=== PATIENT | male | born 1995 | race Two or more races ===

== ENCOUNTER 2017-09-02 09:20 | Emergency (ER) | payer SELFPAY ==
[2017-09-02 09:23] VITALS: BP 129/67; PULSE 57; TEMP 97
[2017-09-02 09:24] VITALS: BMI 27.4
--- NOTE | 2017-09-02 10:13 | PDOC ---
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 Patient report he feels pain and weakness whenever he has to do any heavy lifting . report no seeing anybody when injury occurred Timing/Duration: other (2 weeks) Modifying Factors: improves with: rest. worse with: movement Associated Symptoms: reports: weakness (left hand). denies: chest pain, cough, diaphoresis, fever/chills, headaches, loss of appetite, malaise, nausea/vomiting , rash, seizure, shortness of breath, syncope, other Aspirin Received prior to arrival: Yes: no aspirin today Asa Contraindications(Core Measure): Yes: Allergy Beta Jitendra Contraindications(Core Measure): Yes: Not Prescribed Past History - Past Medical History Allergies/Adverse Reactions: Allergies Allergy/AdvReac Type Severity Reaction Status Date / Time No Known Allergies Allergy Verified 09/02/17 09:23 Home Medications: Ambulatory Orders Ibuprofen 800 mg PO TID PRN #20 tablet 09/02/17 COPD: No - Suicide/Smoking/Psychosocial Hx Smoking History: Never smoked Review of Systems - Review of Systems Constitutional: Yes: Weakness (left hand). No: Chills, Diaphoresis, Fever, Loss of Appetite, Malaise, Night Sweats, Weight Stable, Unintentional Wgt. Loss , Unexplained wgt Loss, Other HEENTM: No: Eye Pain, Blurred Vision, Tearing, Recent change in vision, Double Vision, Cataracts, Ear Pain, Ocular Prothesis, Ear Discharge, Nose Pain, Nose Congestion, Tinnitus, Nose Bleeding, Hearing Loss, Throat Pain, Throat Swelling , Mouth Pain, Dental Problems, Difficulty Swallowing, Mouth Swelling, Other Respiratory: No: Cough, Orthopnea, Shortness of Breath, SOB with Exertion, SOB at Rest, Stridor, Wheezing, Productive cough, Hemoptysis, Other Cardiac (ROS): No: Chest Pain, Edema, Irregular Heart Rate, Lightheadedness, Palpitations, Syncope, Chest Tightness, Other ABD/GI: No: Abdominal Distended, Abd. Pain w/ defecation, Blood Streaked Bowels , Constipated, Diarrhea, Difficulty Swallowing, Nausea, Poor Appetite, Poor Fluid Intake, Rectal Bleeding, Vomiting, Indigestion, Abdominal cramping, Tarry Stools, Other : No: Burning, Dysuria, Discharge, Frequency, Flank Pain, Hematuria, Incontinence, Pain, Urgency, Testicular Mass, Testicular Swelling, Lesions, Testicular Pain, Other Musculoskeletal: Yes: Joint Pain (left little finger ), Muscle Pain (left hand) , Muscle Weakness (left hand). No: Back Pain, Gout, Joint Swelling, Neck Pain, Joint Stiffness, Other Integumentary: No: Bruising, Change in Color, Change in Hair/Nails, Dryness, Erythema, Flushing, Lesions, Lumps, Pallor, Pruritus, Rash, Sweating, Other Neurological: No: Headache, Numbness, Paresthesia, Pre-Existing Deficit, Seizure , Tingling, Tremors, Weakness, Unsteady Gait, Ataxia, Dizziness, Other Psychiatric: No: Frequent Crying, Stressors, Sleep Pattern Change, Emotional Problems, Mood Swings, Change in Appetite, Other Endocrine: No: Excessive Sweating, Flushing, Intolerance to Cold, Intolerance to Heat, Increased Hunger, Increased Thirst, Increased Urine, Unexplained Weight Gain, Unexplained Weight Loss, Change in Weight, Other Hematologic/Lymphatic: No: Anemia, Blood Clots, Easy Bleeding, Easy Bruising, Bleeding Diathesis, Lymph Node Abnormalities, Swollen Glands, Other All Other Systems: Reviewed and Negative *Physical Exam - Vital Signs Last Vital Signs Temp Pulse Resp BP Pulse Ox 97 F L 57 L 18 129/67 99 09/02/17 09:21 09/02/17 09:21 09/02/17 09:21 09/02/17 09:21 09/02/17 09:21 - Physical Exam General Appearance: Yes: Nourished, Appropriately Dressed. No: Apparent Distress HEENT: positive: EOMI, LIVE, Normal ENT Inspection, Normal Voice, Pharynx Normal Neck: positive: Trachea midline, Normal Thyroid, Supple Respiratory/Chest: positive: Lungs Clear, Normal Breath Sounds. negative: Respiratory Distress, Accessory Muscle Use Cardiovascular: positive: Regular Rhythm, Regular Rate, S1, S2 Gastrointestinal/Abdominal: positive: Normal Bowel Sounds Musculoskeletal: positive: Normal Inspection, Other (moderate tenderness over phalange of left little finger and and ulnar aspect of left wrist. FROM of wrist and fingers. 5/5 muscle strength to wrist and left fingers) Extremity: positive: Normal Inspection Integumentary: positive: Normal Color, Dry Neurologic: positive: Fully Oriented, Alert, Normal Mood/Affect, Normal Response , Motor Strength 5/5 (to left hand and fingers ) Procedures - Splinting Splint Location: Left: Wrist (pre-fabricated wrist splint applied ) Pre-Proc Neuro Vasc Exam: normal Pre-Made Type: wrist splint Hand-Made Type: pre-frab splint Splint Type: Yes: Wrist Post-Proc Neuro Vasc Exam: normal Sohan Bandage: no Sling: No Complications: No Post splint xray: No Good repositioning: Yes ED Treatment Course - RADIOLOGY Radiology Studies Ordered: Category Date Time Status FINGER(S) LEFT [RAD] Stat Radiology 09/02/17 10:05 Ordered WRIST W/HAND-LEFT* [RAD] Stat Radiology 09/02/17 10:05 Ordered Medical Decision Making - Medical Decision Making 09/02/17 10:12 Patient with persistent pains to left wrist and hand. likely due to strain vs finger fracture. x-rays of left wrist/hand and fingers ordered 09/02/17 10:39 x-rays of left hand shows possible subtle fracture to base of left 4th metacarpal bone. wrist splint applied and referral to ortho for follow-up care *DC/Admit/Observation/Transfer Diagnosis at time of Disposition: Wrist fracture, left Qualifiers: Encounter type: initial encounter Fracture type: closed Qualified Code(s): S62.102A - Fracture of unspecified carpal bone, left wrist, initial encounter for closed fracture - Discharge Dispostion Disposition: HOME Condition at time of disposition: Stable Decision to Admit order: No - Prescriptions Prescriptions: Ibuprofen 800 mg PO TID PRN #20 tablet PRN Reason: Pain - Referrals Referrals: Adalberto Palomares MD [Staff Physician] - - Patient Instructions Printed Discharge Instructions: DI for Wrist Fracture Additional Instructions: keep wrist splint on until orthopedics follow-up. Take motrin as needed for pain - Post Discharge Activity Forms/Work/School Notes: Back to Work
== END 2017-09-02 10:56 | disposition home or self-care (01) ==
LOC: JERFT 09:20
PROC: 2W3DX1Z Immobilization of Left Lower Arm using Splint (ICD-10-PCS; principal; 2017-09-02)
DX: S62.102A Fracture of unspecified carpal bone, left wrist, initial encounter for closed fracture (principal); W18.39XA Other fall on same level, initial encounter; Y93.89 Activity, other specified; Y92.69 Other specified industrial and construction area as the place of occurrence of the external cause; Y99.0 Civilian activity done for income or pay
CPT/HCPCS: 73110-TC-LR-FY; 73130-TC-LR-FY; 73140-TC-LT-FY; 99281-25

== ENCOUNTER 2018-01-11 03:10 | Emergency (ER) | payer OTHER ==
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
[2018-01-11 03:42] VITALS: BP 134/72; PULSE 72; TEMP 97.6; BMI 28.3
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
== END 2018-01-11 05:18 | disposition home or self-care (01) ==
LOC: JER 03:10
PROC: 0HQ1XZZ Repair Face Skin, External Approach (ICD-10-PCS; principal; 2018-01-11)
DX: S01.81XA Laceration without foreign body of other part of head, initial encounter (principal); W20.8XXA Other cause of strike by thrown, projected or falling object, initial encounter; Y93.89 Activity, other specified; Y92.480 Sidewalk as the place of occurrence of the external cause; Y99.8 Other external cause status; W25.XXXA Contact with sharp glass, initial encounter
CPT/HCPCS: 70450-TC; 99285-25

== ENCOUNTER 2018-01-17 18:06 | Emergency (ER) | payer OTHER ==
[2018-01-17 18:16] VITALS: BP 127/70; PULSE 69; TEMP 98.2; BMI 28.3
[2018-01-17] MEDS ORDERED: DIPHTH,PERTUSS(ACELL),TET 0.5 ML DISP.SYRIN IM ONE ×2 (18:22→19:08)
--- NOTE | 2018-01-17 18:23 | PDOC ---
Suture Removal/Wound Check HPI - History of Present Illness History Source: Yes: Patient, Old Records Exam Limitations: Yes: No Limitations Treated at: [facility] Date of Last ED visit: 01/11/18 - Previous ED Treatment Type of procedure performed on last visit: Yes: Laceration Repair Tetanus Immunization: Yes: Not given @ last ED visit Antibiotics Prescribed: No <Samm Clements - Last Filed: 01/17/18 18:18> <Betsy Mayorga - Last Filed: 01/17/18 19:07> - History of Present Illness Stated Complaint: STITCHES REMOVAL Time Seen by Provider: 01/17/18 18:11 Past History - Past Medical History COPD: No - Immunization History Immunization Up to Date: Yes - Suicide/Smoking/Psychosocial Hx Smoking History: Never smoked Have you smoked in the past 12 months: No Hx Alcohol Use: No Drug/Substance Use Hx: No Substance Use Type: Alcohol <Samm Clements - Last Filed: 01/17/18 18:18> <Betsy Mayorga - Last Filed: 01/17/18 19:07> - Past Medical History Allergies/Adverse Reactions: Allergies Allergy/AdvReac Type Severity Reaction Status Date / Time No Known Allergies Allergy Verified 01/11/18 03:41 Suture Removal/Wound Check PE - Physical Exam Laceration/Wound Check Symptoms: reports: None Current Severity Level: None Maximum Severity Level: None Pain Localization: None Location of Laceration/Wound: left: Head <Samm Clements - Last Filed: 01/17/18 18:18> *Review of Systems - Review of Systems Able to Perform ROS?: Yes All Other Systems: Reviewed and Negative <Samm Clements - Last Filed: 01/17/18 18:18> *Physical Exam - Vital Signs Last Vital Signs Temp Pulse Resp BP Pulse Ox 98.2 F 69 20 127/70 98 01/17/18 18:13 01/17/18 18:13 01/17/18 18:13 01/17/18 18:13 01/17/18 18:13 - Physical Exam Integumentary: positive: Other ([address] to left forehead. No s/s infection. Wound edges well approximated.) <Samm Clements - Last Filed: 01/17/18 18:18> - Vital Signs Last Vital Signs Temp Pulse Resp BP Pulse Ox 98.2 F 69 20 127/70 98 01/17/18 18:13 01/17/18 18:13 01/17/18 18:13 01/17/18 18:13 01/17/18 18:13 <Betsy Mayorga - Last Filed: 01/17/18 19:07> Moderate Sedation - Procedure Monitoring Vital Signs: Procedure Monitoring Vital Signs Temperature 98.2 F 01/17/18 18:13 Pulse Rate 69 01/17/18 18:13 Respiratory Rate 20 01/17/18 18:13 Blood Pressure 127/70 01/17/18 18:13 O2 Sat by Pulse Oximetry (%) 98 01/17/18 18:13 <Samm Clements - Last Filed: 01/17/18 18:18> - Procedure Monitoring Vital Signs: Procedure Monitoring Vital Signs Temperature 98.2 F 01/17/18 18:13 Pulse Rate 69 01/17/18 18:13 Respiratory Rate 20 01/17/18 18:13 Blood Pressure 127/70 01/17/18 18:13 O2 Sat by Pulse Oximetry (%) 98 01/17/18 18:13 <Betsy Mayorga - Last Filed: 01/17/18 19:07> Medical Decision Making - Medical Decision Making 01/17/18 18:20 A/P: 22yo man for suture removal wound edges well approximated. No discharge, drainage, erythema or streaking present. 11 sutures removed without incident. Boostrix Discharge <Samm Clements - Last Filed: 01/17/18 18:18> *DC/Admit/Observation/Transfer - Discharge Dispostion Decision to Admit order: No <Samm Clements - Last Filed: 01/17/18 18:18> <Betsy Mayorga - Last Filed: 01/17/18 19:07> Diagnosis at time of Disposition: Encounter for removal of sutures - Discharge Dispostion Disposition: HOME Condition at time of disposition: Stable - Patient Instructions Printed Discharge Instructions: DI for Suture Removal Additional Instructions: Return to ED for any concerns. your tetanus/diphtheria/pertussis booster was updated
== END 2018-01-17 19:19 | disposition home or self-care (01) ==
LOC: JERFT 18:06 → JER 18:06 → JERFT 19:19
DX: Z48.02 Encounter for removal of sutures (principal)
CPT/HCPCS: 90715; 99281-25

== ENCOUNTER 2018-05-21 19:08 | Emergency (ER) | payer OTHER ==
[2018-05-21] MEDS ORDERED: ACETAMINOPHEN 500 MG TABLET (FP) PO ONE (19:35)
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
[2018-05-21] MEDS ORDERED: ACETAMINOPHEN 500 MG TABLET (FP) ONE (19:37)
[2018-05-21 19:42] VITALS: BP 134/85; PULSE 57; TEMP 98.5; BMI 35.4
--- NOTE | 2018-05-21 21:03 | PDOC ---
History of Present Illness - General Chief Complaint: Headache Stated Complaint: PAIN IN THE HEAD Time Seen by Provider: 05/21/18 19:32 - History of Present Illness Initial Comments: 05/21/18 21:01 22-year-old male presents for evaluation of intermittent headaches over the last month. He did not take any medication. He has no nausea vomiting or visual changes. No trauma Past History - Past Medical History Allergies/Adverse Reactions: Allergies Allergy/AdvReac Type Severity Reaction Status Date / Time No Known Allergies Allergy Verified 01/11/18 03:41 Home Medications: Ambulatory Orders NK [No Known Home Medication] 05/21/18 COPD: No - Immunization History Immunization Up to Date: Yes - Suicide/Smoking/Psychosocial Hx Smoking History: Unknown if ever smoked Have you smoked in the past 12 months: No Hx Alcohol Use: Yes (Social) Drug/Substance Use Hx: No Substance Use Type: Alcohol Review of Systems - Review of Systems Neurological: Yes: Headache *Physical Exam - Vital Signs Last Vital Signs Temp Pulse Resp BP Pulse Ox 98.5 F 57 L 20 134/85 97 05/21/18 19:33 05/21/18 19:33 05/21/18 19:33 05/21/18 19:33 05/21/18 19:33 - Physical Exam Comments: 05/21/18 21:01 HEAD: NC/AT EYES: Conjuntiva clear Ears: Canals and TM's normal NOSE: No d/c THROAT: Moist mucous membrances, oral pharanx clear, uvula midline NECK: Supple without adenopathy CARDIAC: S1 S2 LUNGS: CTA Full and Equal breath sounds ABDOMEN: Soft NT ND MS: Full ROM in all joints without edema NEUROLOGIC: No gross sensory or motor deficits, NVID SKIN: Normal color and temperature no lesions or rashes ED Treatment Course - Medications Given in the ED: ED Medications Discontinued Medications Generic Name Dose Route Start Last Admin Trade Name Freq PRN Reason Stop Dose Admin Acetaminophen 1,000 mg 05/21/18 19:35 05/21/18 19:38 Tylenol - PO 05/21/18 19:36 1,000 mg ONCE ONE Administration Medical Decision Making - Medical Decision Making 05/21/18 21:01 Headache relieved with a single dose of Tylenol. I will have him follow-up with neurology. *DC/Admit/Observation/Transfer Diagnosis at time of Disposition: Headache - Discharge Dispostion Disposition: HOME Condition at time of disposition: Improved Decision to Admit order: No - Referrals Referrals: Shanell De La Cruz MD [Staff Physician] - - Patient Instructions Printed Discharge Instructions: DI for Headache Additional Instructions: Return to the emergency room for worsening symptoms. He may take Tylenol and Motrin as directed for headaches. Follow-up with neurology in 1-2 days for further evaluation and treatment options. - Post Discharge Activity
== END 2018-05-21 21:08 | disposition home or self-care (01) ==
LOC: JER 19:08 → JERFT 19:08
DX: R51 Headache (principal)
CPT/HCPCS: 99281-25

== ENCOUNTER 2018-06-18 18:36 | Emergency (ER) | payer OTHER ==
[2018-06-18 18:49] VITALS: BP 129/107; PULSE 66; TEMP 98.1; BMI 20.5
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
--- NOTE | 2018-06-18 20:38 | PDOC ---
History of Present Illness - General Chief Complaint: Injury Stated Complaint: INJURY Time Seen by Provider: 06/18/18 18:51 - History of Present Illness Initial Comments: 06/18/18 20:34 22-year-old male presents for evaluation of right shrestha discoloration 5 days without any precipitating traumatic event. He first noticed a discoloration after doing leg extensions at the gym. Past History - Past Medical History Allergies/Adverse Reactions: Allergies Allergy/AdvReac Type Severity Reaction Status Date / Time No Known Allergies Allergy Verified 06/18/18 18:39 Home Medications: Ambulatory Orders NK [No Known Home Medication] 05/21/18 COPD: No - Immunization History Immunization Up to Date: Yes - Suicide/Smoking/Psychosocial Hx Smoking History: Never smoked Have you smoked in the past 12 months: No Information on smoking cessation initiated: No Hx Alcohol Use: No Drug/Substance Use Hx: No Substance Use Type: Alcohol Review of Systems - Review of Systems Integumentary: Yes: See HPI *Physical Exam - Vital Signs Last Vital Signs Temp Pulse Resp BP Pulse Ox 98.1 F 66 17 129/107 H 99 06/18/18 18:41 06/18/18 18:41 06/18/18 18:41 06/18/18 18:41 06/18/18 18:41 - Physical Exam Comments: 06/18/18 20:35 There is about an 8 cm x 3 cm irregularly shaped oval area on the anterior aspect of the right lower leg. There is no warmth tenderness induration or fluctuance. The area is mildly tender. There is 5 out of 5 strength with the extension and ankle plantar and dorsiflexion. There is no pain with passive range of motion of the knee or ankle or toes. The thigh and calf are soft and nontender. Medical Decision Making - Medical Decision Making 06/18/18 20:36 X-rays of the right lower leg show no evidence of fracture trauma or destructive process. This is a pretibial hematoma from excessive pressure Alan leg extension exercises at the gym. Encouraged elevation ice without compression *DC/Admit/Observation/Transfer Diagnosis at time of Disposition: Hematoma Diagnosis at time of Disposition: (Ruled Out): Leg wound, right - Discharge Dispostion Disposition: HOME Condition at time of disposition: Stable Decision to Admit order: No - Referrals Referrals: Canales,Robb A, DO [Staff Physician] - - Patient Instructions Printed Discharge Instructions: DI for Hematoma (Bruise) Additional Instructions: Return to the emergency room for worsening symptoms. Please follow-up with orthopedic surgery in 1-2 days for further evaluation and treatment options. Do not put any pressure on the area. Ice and elevation. Do not compress the area with the wrap. Weight-bear as tolerated Tylenol and Motrin as directed for pain. Regrese a la guillermina de emergencias para empeorar los sntomas. Por favor yesenia un seguimiento con ciruga ortopdica en 1-2 kumar para jarad evaluacin adicional y opciones de tratamiento. No ponga ninguna presin sobre el jerad. Hielo y elevacin. No comprima el jerad con la envoltura. El peso soporta segn lo tolerado Tylenol y Motrin vanessa se indica para el dolor. Print Language: AZERI - Post Discharge Activity
== END 2018-06-18 20:42 | disposition home or self-care (01) ==
LOC: JERFT 18:36
DX: S80.12XA Contusion of left lower leg, initial encounter (principal); X50.3XXA Overexertion from repetitive movements, initial encounter; Y93.B9 Activity, other involving muscle strengthening exercises; Y92.39 Other specified sports and athletic area as the place of occurrence of the external cause; Y99.8 Other external cause status
CPT/HCPCS: 73590-TC-RT-FY; 99281-25

== ENCOUNTER 2018-11-10 19:05 | Emergency (ER) | payer OTHER ==
[2018-11-10 19:17] VITALS: BP 120/64; PULSE 60; TEMP 98.5; BMI 31.7
--- NOTE | 2018-11-10 20:25 | PDOC ---
History of Present Illness - General Chief Complaint: Eye Problem Stated Complaint: SWELLING ABOVE RT EYE Time Seen by Provider: 11/10/18 20:22 History Source: Patient Exam Limitations: No Limitations Past History - Past Medical History Allergies/Adverse Reactions: Allergies Allergy/AdvReac Type Severity Reaction Status Date / Time No Known Allergies Allergy Verified 11/10/18 19:11 Home Medications: Ambulatory Orders NK [No Known Home Medication] 05/21/18 COPD: No - Immunization History Immunization Up to Date: Yes - Suicide/Smoking/Psychosocial Hx Smoking History: Never smoked Have you smoked in the past 12 months: No Hx Alcohol Use: No Drug/Substance Use Hx: No Substance Use Type: Alcohol *Physical Exam - Vital Signs Last Vital Signs Temp Pulse Resp BP Pulse Ox 98.5 F 60 18 120/64 96 11/10/18 19:11 11/10/18 19:11 11/10/18 19:11 11/10/18 19:11 11/10/18 19:11 *DC/Admit/Observation/Transfer Diagnosis at time of Disposition: Hematoma - Discharge Dispostion Disposition: HOME Condition at time of disposition: Stable Decision to Admit order: No - Referrals Referrals: Efrain Xiong MD [Staff Physician] - - Patient Instructions Printed Discharge Instructions: DI for Hematoma (Bruise) Additional Instructions: You were seen for the bump on your forehead It is a bruise or a hematoma Use warm rags to the area 4-5 times a day for 20 minutes at a time This could take 1-2 months to completely resolve Follow up with primary care. A referral has been provided to you Return to the ER for any new or worsening symptoms Te vieron por el bulto en la frente Es un hematoma o un hematoma. Use trapos calientes en el jerad de 4 a 5 veces al da berenice 20 minutos a la vez Wrens podra jan 1-2 meses para resolverse por completo Seguimiento con atencin primaria. Se le barraza proporcionado jarad referencia Regrese a la guillermina de emergencias por cualquier sntoma nuevo o que empeore Print Language: JAPANESE - Post Discharge Activity Forms/Work/School Notes: Back to Work
== END 2018-11-10 20:34 | disposition home or self-care (01) ==
LOC: JERFT 19:05
DX: S00.83XA Contusion of other part of head, initial encounter (principal); X58.XXXA Exposure to other specified factors, initial encounter; Y93.89 Activity, other specified; Y92.89 Other specified places as the place of occurrence of the external cause; Y99.8 Other external cause status
CPT/HCPCS: 99281-25